=== PATIENT | male | born 1990 | race Caucasian/White ===

== ENCOUNTER 2017-09-10 00:17 | Inpatient (IN) | payer OTHER ==
[2017-09-10] MEDS ORDERED: ONDANSETRON 4 MG INJ IV ×3 (02:30→20:00)
[2017-09-10] MEDS: DEXTROSE 5%-0.45% NACL 1,000 ML IV ×3 (03:02→21:18)
[2017-09-10 03:03] LABS: ADD MAN DIFF? NO
[2017-09-10 03:05] LABS: WHITE BLOOD COUNT 10.5 10^3/ul (4.8-10.8)
[2017-09-10 03:05] LABS: BASOPHIL # 0.1 10^3/ul (0.0-0.1); BASOPHILS % 0.7 % (0.0-2.0); EOSINOPHILS # 0.4 10^3/ul (0.0-0.5); EOSINOPHILS % 4.2 % (0.0-7.0); HEMATOCRIT 38.8 % (42.0-52.0); HEMOGLOBIN 13.4 g/dl (14.0-18.0); LYMPHOCYTES # 2.9 10^3/ul (0.8-2.9); LYMPHOCYTES % 27.3 % (15.0-51.0); MEAN CORPUSCULAR HEMOGLOBIN 29.3 pg (29.0-33.0); MEAN CORPUSCULAR HGB CONC 34.5 g/dl (32.0-37.0); MEAN CORPUSCULAR VOLUME 84.9 fl (82.0-101.0); MEAN PLATELET VOLUME 10.6 fl (7.4-10.4); MONOCYTE # 0.8 10^3/ul (0.3-0.9); MONOCYTES % 7.3 % (0.0-11.0); NEUTROPHIL # 6.3 10^3/ul (1.6-7.5); NEUTROPHILS % 59.9 % (39.0-77.0); PLATELET COUNT 201 10^3/UL (140-415); RED BLOOD COUNT 4.57 10^6/ul (4.70-6.10); RED CELL DISTRIBUTION WIDTH 12.8 % (11.5-14.5)
[2017-09-10] MEDS: morphine 2 MG INJ IV (03:13)
[2017-09-10 03:26] LABS: INR 1.06; PROTIME 13.9 Sec (11.9-14.9); PT RATIO 1.1
[2017-09-10 03:33] LABS: ALANINE AMINOTRANSFERASE 26 IU/L (13-69); ALBUMIN 4.2 g/dl (3.3-4.9); ALBUMIN/GLOBULIN RATIO 1.13; ALKALINE PHOSPHATASE 66 IU/L (42-121); ANION GAP 18 (8-16); ASPARTATE AMINO TRANSFERASE 21 IU/L (15-46); BILIRUBIN,INDIRECT 0.3 mg/dl (0-1.1); BILIRUBIN,TOTAL 0.3 mg/dl (0.2-1.3); BLOOD UREA NITROGEN 18 mg/dl (7-20); CALCIUM 9.2 mg/dl (8.4-10.2); CARBON DIOXIDE 27 mmol/L (21-31); CHLORIDE 106 mmol/L (97-110); CREATININE 0.66 mg/dl (0.61-1.24); GLUCOSE 97 mg/dl (70-220); LIPASE 127 U/L (23-300); POTASSIUM 3.9 mmol/L (3.5-5.1); SODIUM 147 mmol/L (135-144); TOTAL PROTEIN 7.9 g/dl (6.1-8.1)
[2017-09-10 03:34] LABS: PARTIAL THROMBOPLASTIN TIME 35.1 Sec (25.0-35.0)
[2017-09-10 10:45] LABS: PHOSPHORUS 4.9 mg/dl (2.5-4.9)
[2017-09-10 10:45] LABS: MAGNESIUM 1.7 mg/dl (1.7-2.5)
[2017-09-10] MEDS ORDERED: ROCURONIUM 50 MG INJ (14:39)
[2017-09-10] MEDS ORDERED: ROPIVACAINE 0.5 % 30 ML VIAL ×2 (14:39→14:54)
[2017-09-10] MEDS ORDERED: MIDAZOLAM 1 MG/ML 2 ML INJ ×2 (14:39)
[2017-09-10] MEDS ORDERED: PROPOFOL 20 ML (14:39)
[2017-09-10] MEDS ORDERED: CEFAZOLIN 1 GM INJ ×2 (14:39→18:59)
[2017-09-10] MEDS ORDERED: PHENYLephrine (100 MCG/ML) 5ML SYG (15:23)
[2017-09-10] MEDS: POLYMYXIN/BACITRACIN 1L IRRIG (15:57)
[2017-09-10] MEDS: NEOMYC/POLYMYX/BACIT 30 GM OINT (15:57)
[2017-09-10] MEDS ORDERED: ACETAMINOPHEN 1000MG/100ML IV 100 ML (16:11)
[2017-09-10] MEDS ORDERED: ONDANSETRON 4 MG INJ (16:11)
[2017-09-10] MEDS ORDERED: METOCLOPRAMIDE 10 MG INJ (16:12)
[2017-09-10] MEDS ORDERED: DEXAMETHASONE 4 MG/ML 1 ML INJ (16:12)
[2017-09-10] MEDS ORDERED: KETOROLAC 30 MG INJ (16:12)
[2017-09-10] MEDS ORDERED: SUGAMMADEX SODIUM 200 MG/2 ML VIAL IV (16:12)
[2017-09-10] MEDS ORDERED: OXYCODONE/ACETAMINOPHEN (5/325) TAB PO ×2 (16:30)
[2017-09-10] MEDS ORDERED: FENTAnyl 50 MCG/ML VIAL IV ×2 (16:30)
[2017-09-10] MEDS ORDERED: LABETALOL HCL 20MG INJ IV (16:30)
[2017-09-10] MEDS ORDERED: EPHEDrine SULFATE 50 MG/5 ML SYG IV (16:30)
[2017-09-10] MEDS ORDERED: HYDROmorphONE 1 MG/5 ML IV SYRINGE IV ×2 (16:30)
[2017-09-10] MEDS ORDERED: METOCLOPRAMIDE 10 MG INJ IV (16:30)
[2017-09-10] MEDS ORDERED: MEPERIDINE 25 MG INJ IV (16:30)
[2017-09-10] MEDS ORDERED: DIPHENHYDRAMINE 50 MG INJ IV (16:30)
[2017-09-10] MEDS ORDERED: hydrALAzine 20 MG INJ IV (16:30)
[2017-09-10] MEDS ORDERED: HYDROmorphONE 2 MG/ML SYG (18:56)
[2017-09-10] MEDS: HYDROmorphONE 1 MG/5 ML IV SYRINGE IV (19:58)
[2017-09-10] MEDS: CEFAZOLIN 1 GM/50 ML (PMX) 50 ML IVPB (20:00)
[2017-09-10] MEDS ORDERED: DIPHENHYDRAMINE 25 MG CAP PO (20:00)
[2017-09-10] MEDS: oxyCODONE 5 MG TAB PO ×2 (20:00→22:44)
[2017-09-10] MEDS ORDERED: CEFAZOLIN 1 GM INJ IV (20:00)
[2017-09-10] MEDS: FENTAnyl 50 MCG/ML VIAL IV (20:14)
[2017-09-10] MEDS: PREGABALIN 100 MG CAP NGT (21:18)
[2017-09-10] MEDS: HYDROmorphONE 1 MG/ML SYG IV (22:00)
[2017-09-11] MEDS: oxyCODONE 5 MG TAB PO ×7 (00:13→23:28)
[2017-09-11] MEDS: HYDROmorphONE 1 MG/ML SYG IV ×7 (01:12→21:21)
[2017-09-11] MEDS: CEFAZOLIN 1 GM/50 ML (PMX) 50 ML IVPB ×3 (04:08→20:13)
[2017-09-11 05:46] LABS: ADD MAN DIFF? NO
[2017-09-11 05:53] LABS: BASOPHILS % 0.2 % (0.0-2.0); HEMATOCRIT 36.8 % (42.0-52.0); HEMOGLOBIN 12.7 g/dl (14.0-18.0); LYMPHOCYTES # 1.1 10^3/ul (0.8-2.9); LYMPHOCYTES % 10.8 % (15.0-51.0); MEAN CORPUSCULAR HEMOGLOBIN 28.9 pg (29.0-33.0); MEAN CORPUSCULAR HGB CONC 34.5 g/dl (32.0-37.0); MEAN CORPUSCULAR VOLUME 83.8 fl (82.0-101.0); MEAN PLATELET VOLUME 10.9 fl (7.4-10.4); MONOCYTE # 0.6 10^3/ul (0.3-0.9); MONOCYTES % 6.3 % (0.0-11.0); NEUTROPHIL # 8.2 10^3/ul (1.6-7.5); NEUTROPHILS % 82.2 % (39.0-77.0); PLATELET COUNT 191 10^3/UL (140-415); RED BLOOD COUNT 4.39 10^6/ul (4.70-6.10); RED CELL DISTRIBUTION WIDTH 12.6 % (11.5-14.5)
[2017-09-11 05:58] LABS: MAGNESIUM 1.4 mg/dl (1.7-2.5)
[2017-09-11 05:58] LABS: PHOSPHORUS 4.7 mg/dl (2.5-4.9)
[2017-09-11 06:02] LABS: ANION GAP 14 (8-16); BLOOD UREA NITROGEN 8 mg/dl (7-20); CALCIUM 8.7 mg/dl (8.4-10.2); CARBON DIOXIDE 30 mmol/L (21-31); CHLORIDE 105 mmol/L (97-110); CREATININE 0.65 mg/dl (0.61-1.24); GLUCOSE 137 mg/dl (70-220); SODIUM 145 mmol/L (135-144)
[2017-09-11] MEDS: morphine 2 MG INJ IV ×2 (07:20→14:25)
[2017-09-11] MEDS: DEXTROSE 5%-0.45% NACL 1,000 ML IV ×2 (07:20→18:30)
[2017-09-11] MEDS: PREGABALIN 100 MG CAP NGT ×2 (08:25→20:13)
[2017-09-11] MEDS: LORAZEPAM 2 MG INJ IV ×2 (17:15→23:28)
[2017-09-11] MEDS: RIVAROXABAN 10 MG TABLET PO (17:15)
[2017-09-11] MEDS: MAGNESIUM OXIDE 400 MG TAB PO (20:13)
[2017-09-12] MEDS: HYDROmorphONE 1 MG/ML SYG IV ×5 (01:01→13:46)
[2017-09-12] MEDS: CEFAZOLIN 1 GM/50 ML (PMX) 50 ML IVPB ×2 (04:11→11:45)
[2017-09-12] MEDS: oxyCODONE 5 MG TAB PO ×3 (04:11→11:45)
[2017-09-12] MEDS: DEXTROSE 5%-0.45% NACL 1,000 ML IV (04:30)
[2017-09-12] MEDS: MAGNESIUM OXIDE 400 MG TAB PO (08:20)
[2017-09-12] MEDS: PREGABALIN 100 MG CAP NGT (08:20)
[2017-09-12] MEDS: LORAZEPAM 0.5 MG TAB PO (12:04)
[2017-09-12] MEDS: PROPRANOLOL 10 MG TAB PO (15:34)
[2017-09-12] MEDS ORDERED: PROPRANOLOL 10 MG TAB PO (21:00)
== END 2017-09-12 16:03 | disposition home or self-care (01) | DRG 494 ==
LOC: MS1 02:30 → E/R 00:17 → MS1 00:18
PROC: 0QSG04Z Reposition Right Tibia with Internal Fixation Device, Open Approach (ICD-10-PCS; principal; 2017-09-10 14:33)
PROC: 0SBF4ZZ Excision of Right Ankle Joint, Percutaneous Endoscopic Approach (ICD-10-PCS; 2017-09-10 14:33)
PROC: 0SCF4ZZ Extirpation of Matter from Right Ankle Joint, Percutaneous Endoscopic Approach (ICD-10-PCS; 2017-09-10 14:33)
PROC: 0QBL4ZZ Excision of Right Tarsal, Percutaneous Endoscopic Approach (ICD-10-PCS; 2017-09-10 14:33)
DX: S82.51XA Displaced fracture of medial malleolus of right tibia, initial encounter for closed fracture (principal); S93.491A Sprain of other ligament of right ankle, initial encounter; V49.40XA Driver injured in collision with unspecified motor vehicles in traffic accident, initial encounter; Y93.89 Activity, other specified; Y92.410 Unspecified street and highway as the place of occurrence of the external cause; Y99.8 Other external cause status; F17.210 Nicotine dependence, cigarettes, uncomplicated; S92.141A Displaced dome fracture of right talus, initial encounter for closed fracture; M24.071 Loose body in right ankle
CPT/HCPCS: 73610-RT; 80048; 80053; 82306; 83690; 83735; 84100; 85025; 85610; 85730; 93005; 97161; 99285-25

== ENCOUNTER 2018-05-12 16:42 | Emergency (ER) | payer SELFPAY, OTHER | END 2018-05-12 18:14 | disposition left against medical advice (07) | LOC: FTE 18:14 | DX: Z53.21 Procedure and treatment not carried out due to patient leaving prior to being seen by health care provider (principal) ==